=== PATIENT | male | born 1995 | race Two or more races ===

== ENCOUNTER 2024-07-11 18:27 | Emergency (ER) | payer BC, MEDICAID, SELFPAY ==
[2024-07-11 18:42] VITALS: BP 136/84; PULSE 104; RESP 16; TEMP 36.8; O2SAT 97; BMI 26.6
--- NOTE | 2024-07-11 19:01 | PD.EDURI ---
Upper Respiratory Inf. RME/HPI General Chief Complaint: Flu Like Symptoms Stated Complaint: FEVER, COUGH, SORE THROAT Time Seen by Provider: 07/11/24 18:57 Arrival date/time: 07/11/24 18:27 29M with history of anxiety and HLD presents to ED with several days of cough, sore throat, and fevers/chills. Family members at home have RSV. Patient is here mostly for RSV testing for his son, who he is here with, so he can get work off for 2 weeks that he will coordinate with his PCP. Limitations: no limitations Related Data Home Medications ?Medication ?Instructions ?Recorded ?Confirmed propranolol 10 mg tablet 10 mg PO QDAY 04/03/21 03/07/24 simvastatin 20 mg tablet 20 mg PO HS 03/07/24 03/07/24 Previous Rx's ?Medication ?Instructions ?Recorded aluminum-mag hydroxide-simethicone 10 ml PO QID PRN indigestion 03/07/24 200 mg-200 mg-20 mg/5 mL oral susp #3,000 mL (Advanced Antacid-Antigas) Allergies Allergy/AdvReac Type Severity Reaction Status Date / Time No Known Allergies Allergy Verified 03/17/23 17:33 Review of Systems Review of Systems Systems Reviewed: All systems reviewed, normal except as documented Constitutional Constitutional: Reports system reviewed and no additional complaints, except as documented, Reports as per HPI, Reports chills, Reports fever(s) and Denies headache(s) ENT Ears, Nose, Mouth, and Throat: Reports as per HPI, Denies disequilibrium, Denies headache(s) and Reports sore throat Cardiovascular Cardiovascular: Reports system reviewed and no additional complaints, except as documented, Denies chest pain and Denies dyspnea Respiratory Respiratory: Reports system reviewed and no additional complaints, except as documented, Reports as per HPI, Reports cough and Denies dyspnea Gastrointestinal Gastrointestinal: Reports system reviewed and no additional complaints, except as documented, Denies abdominal pain, Denies nausea and Denies vomiting Neurologic Neurologic: Reports system reviewed and no additional complaints, except as documented, Denies confusion, Denies disequilibrium and Denies headache(s) Psychiatric Psychiatric: Denies confusion Past Medical History Past Medical History CARDIAC: Positive Cardiac Disorders and Hypercholesterolemia; Negative Congestive Heart Failure RESPIRATORY: Negative Chronic Obstructive Pulmonary Disease (COPD) or Asthma GENITOURINARY: Negative Renal Disease ENDOCRINE: Negative Diabetes Mellitus Type 1 or Diabetes Mellitus Type 2 HEMATOLOGIC: Negative Sickle Cell Disease PSYCHO/SOCIAL: Positive Anxiety Social History SMOKING STATUS: Never smoker SUBSTANCE USE: does not use ED Exam General Limitations: Present no limitations General appearance: Present alert and in no apparent distress Head Head exam: Present atraumatic Eye Eye exam: Present normal appearance, PERRL and EOMI ENT ENT exam: Present normal exam, normal oropharynx and mucous membranes moist Neck Neck exam: Present normal inspection, full ROM and trachea midline Chest Chest inspection: Present normal inspection and symmetric chest wall rise Respiratory Respiratory exam: Present normal lung sounds bilaterally Cardiovascular Cardiovascular exam: Present regular rate, normal rhythm and normal heart sounds Abdominal Exam Abdominal exam: Present soft and normal bowel sounds Extremities Exam Extremities exam: Present normal inspection and full ROM Back Exam Back exam: Present normal inspection and full ROM Neurological Exam Neurological exam: Present alert, oriented X3 and CN II-XII intact Psychiatric Psychiatric exam: Present normal affect and normal mood Skin Skin exam: Present warm, dry, intact and normal color Course Quality Measures none Vital Signs Vital signs: Vital Signs Temperature 98.2 F 07/11/24 18:42 Pulse Rate 104 H 07/11/24 18:42 Respiratory Rate 16 07/11/24 18:42 Blood Pressure 136/84 H 07/11/24 18:42 Pulse Oximetry (%) 97 07/11/24 18:42 Oxygen Delivery Method Room Air 07/11/24 18:42 O2 at 97% on RA and WNLs Upper Respiratory Infection MDM Narrative MDM Narrative:: 29M with history of anxiety and HLD presents to ED with several days of cough, sore throat, and fevers/chills. Family members at home have RSV. Patient is here mostly for RSV testing for his son, who he is here with, so he can get work off for 2 weeks that he will coordinate with his PCP. Physical exam reveals clear ENT and lungs. Patient is afebrile, calm, and alert. Likely RSV, but viral URI nonetheless. Patient data External records reviewed:: [facility] previous records Clinical information provided by:: patient Social determinants that could affect healthcare access:: mental health Patient has the following chronic illnesses:: anxiety and HLD How is presenting disease/condition affected by chronic disease/condition?: exacerbated by Evaluation data The following diagnostics were reviewed and interpreted by me:: other (specify) (none) Lab and/or radiology exams considered but not ordered:: not ordered Interpretation Summary: n/a Medications / Prescriptions Medications or Prescriptions considered but not ordered:: not ordered Medication administrations:: n/a Consultations Consultation(s) initiated? (list below): No Diagnosis Upper Respiratory Differential Diagnosis: upper respiratory infection, croup, otitis media, sinusitis, viral infection, bronchitis, influenza and pharyngitis Most likely diagnosis given after review of the tests above:: RSV Admission Indicated Admission indicated?: not indicated Admission Request Was there a request for admission?: No Disposition Plan Disposition Plan: Discharge Discharge Attestation Discharge Attestation: The patient and all family members were given an opportunity to ask questions and understood the discharge instructions. Discharge instructions specifically effects, indications for sooner follow up or return to the emergency department, and the expected course of current diagnosis. Patient condition: Stable Discharge Plan Plan Patient Disposition: HOME (Self Care) Disposition Comment: Stable Prescriptions/Referrals Prescriptions/Med Rec: No Action propranolol 10 mg tablet 10 mg PO QDAY Patient Comments: TAKE ONE TABLET BY MOUTH TWICE DAILY simvastatin 20 mg tablet 20 mg PO HS Patient Comments: TAKE ONE TABLET BY MOUTH EVERY EVENING WITH FOOD FOR CHOLESTEROL alum-mag hydroxide-simeth [Advanced Antacid-Antigas] 200-200-20 mg/5 mL suspension 10 ml PO QID PRN (Reason: indigestion) Qty: 3000 0RF Rx Instructions: administer between meals and at bedtime Referrals: Andre Hammond FNP [Primary Care Provider] - In 1 week Problem List Clinical Impression: Respiratory syncytial virus (RSV) Patient/Caregiver Discharge Instructions Additional Instructions: Please follow-up with PCP within 24-48 hours and return immediately if symptoms worsen. Ibuprofen/Tylenol can be used simultaneously for greater fever/pain control. Benadryl is good for cough, congestion, and sleep. Print Language: Ugandan Stand Alone Forms: Patient Portal Info Letter DORIE/DEVOPS ARCHITECT Supervising Physician DORIE/WINNIE Supervising Physician: Dr. Levi
[2024-07-11 20:15] VITALS: RESP 18
== END 2024-07-11 20:15 | disposition home or self-care (01) ==
PROVIDERS: Emergency Provider Emergency Medicine; PCP Nurse Practitioner Family
DX: J22 Unspecified acute lower respiratory infection (principal); B97.4 Respiratory syncytial virus as the cause of diseases classified elsewhere
CPT/HCPCS: 99281

== ENCOUNTER 2024-12-31 21:15 | Emergency (ER) | payer BC, MEDICAID, SELFPAY ==
[2024-12-31 21:16] VITALS: BMI 25.9
[2024-12-31 22:33] VITALS: BP 119/81; PULSE 77; RESP 18; TEMP 36.8; O2SAT 98
--- NOTE | 2025-01-01 00:19 | PD.EDANX ---
ED Anxiety RME/HPI General Chief Complaint: Anxiety Stated Complaint: ANXIETY Time Seen by Provider: 12/31/24 23:06 Arrival date/time: 12/31/24 21:15 RME / HPI RME / HPI narrative: 29-year-old male presents to the ED with complaint of severe anxiety symptoms. He takes propranolol for his anxiety but his symptoms have become severe due to multiple recent stressors. He denies any current suicidal or homicidal ideation. He is interested in finding out about Zoloft. He has an appointment with his primary care physician as well as a psychiatrist on . Related Data Home Medications ?Medication ?Instructions ?Recorded ?Confirmed propranolol 10 mg tablet 10 mg PO QDAY 04/03/21 03/07/24 simvastatin 20 mg tablet 20 mg PO HS 03/07/24 03/07/24 Previous Rx's ?Medication ?Instructions ?Recorded aluminum-mag hydroxide-simethicone 10 ml PO QID PRN indigestion 03/07/24 200 mg-200 mg-20 mg/5 mL oral susp #3,000 mL (Advanced Antacid-Antigas) buspirone 7.5 mg tablet 7.5 mg PO TID PRN Anxiety symptoms 01/01/25 #7 tabs Allergies Allergy/AdvReac Type Severity Reaction Status Date / Time No Known Allergies Allergy Verified 12/31/24 21:20 Past Medical History Past Medical History CARDIAC: Positive Cardiac Disorders and Hypercholesterolemia; Negative Congestive Heart Failure RESPIRATORY: Negative Chronic Obstructive Pulmonary Disease (COPD) or Asthma GENITOURINARY: Negative Renal Disease ENDOCRINE: Negative Diabetes Mellitus Type 1 or Diabetes Mellitus Type 2 HEMATOLOGIC: Negative Sickle Cell Disease PSYCHO/SOCIAL: Positive Anxiety Social History SMOKING STATUS: Never smoker SUBSTANCE USE: does not use ED Exam Narrative Physical exam: A&O, afebrile and non-toxic appearing 29-year-old male who appears very anxious. He is in mild to moderate acute distress. Lung are clear, RRR, Abdomen is non-distended. Moves all extremities well. Patient is here with his . Course Course Course Narrative: Patient was given lorazepam 1 mg p.o. while here in the emergency department. He does not feel he needs evaluation with behavioral health tonight as he already has an appointment with a psychiatrist and his PCP on . Quality Measures none Orders Category Date Time Status LORazepam [Ativan] Med 12/31/24 23:42 Discontinued 1 mg PO X1 ONE Vital Signs Vital signs: Vital Signs Temperature 98.2 F 12/31/24 22:33 Pulse Rate 77 12/31/24 22:33 Respiratory Rate 18 12/31/24 22:33 Blood Pressure 119/81 12/31/24 22:33 Pulse Oximetry (%) 98 12/31/24 22:33 Oxygen Delivery Method Room Air 12/31/24 22:33 Anxiety MDM Narrative MDM Narrative: Symptoms, exam and diagnostic studies are consistent with: Moderate anxiety reaction. He was given lorazepam 1 mg p.o. prior to discharge. Patient was discharged home in stable and improved condition, with a prescription for BuSpar. Patient/family advised to follow-up with their PCP in 24-48 hours. He was advised to discuss Zoloft with his primary care physician for better control of his anxiety and depression symptoms. Encouraged to return to the ED for any new or worsening symptoms. Patient data External records reviewed:: None Clinical information provided by:: patient Social determinants that could affect healthcare access:: none Patient has the following chronic illnesses:: Anxiety and depression How is presenting disease/condition affected by chronic disease/condition?: exacerbated by Evaluation data The following diagnostics were reviewed and interpreted by me:: other (specify) (None) Lab and/or radiology exams considered but not ordered:: N/A Interpretation Summary: N/A Medications / Prescriptions Medications or Prescriptions considered but not ordered:: N/A Medication administrations:: Medication Administration History Discontinued Medications Lorazepam (Lorazepam 0.5 Mg Tablet) 1 mg PO X1 ONE Stop: 12/31/24 23:43 Last Admin: 01/01/25 00:12 Dose: 1 mg Documented By: YUDY As noted above Consultations Consultation(s) initiated? (list below): No Diagnosis Differential diagnosis anxiety: panic disorder, acute anxiety and other (Depression) Most likely diagnosis given after review of the tests above:: Acute anxiety reaction Admission Indicated Admission indicated?: not indicated Explain why admission is indicated or not indicated:: Patient is stable for discharge and denies suicidal or homicidal ideation. Admission Request Was there a request for admission?: No Admission Attestation Admission request attestation: N/A Disposition Plan Disposition Plan: Discharge Discharge Attestation Discharge Attestation: The patient and all family members were given an opportunity to ask questions and understood the discharge instructions. Discharge instructions specifically effects, indications for sooner follow up or return to the emergency department, and the expected course of current diagnosis. Patient condition: Stable Discharge Plan Plan Patient Disposition: HOME (Self Care) Discharge Disposition comment: Stable and improved Prescriptions/Referrals Prescriptions/Med Rec: New buspirone 7.5 mg tablet 7.5 mg PO TID PRN (Reason: Anxiety symptoms) Qty: 7 0RF No Action propranolol 10 mg tablet 10 mg PO QDAY Patient Comments: TAKE ONE TABLET BY MOUTH TWICE DAILY simvastatin 20 mg tablet 20 mg PO HS Patient Comments: TAKE ONE TABLET BY MOUTH EVERY EVENING WITH FOOD FOR CHOLESTEROL alum-mag hydroxide-simeth [Advanced Antacid-Antigas] 200-200-20 mg/5 mL suspension 10 ml PO QID PRN (Reason: indigestion) Qty: 3000 0RF Rx Instructions: administer between meals and at bedtime Referrals: No Primary/Family,Physician [Primary Care Provider] - In 1 week Problem List Clinical Impression: Acute anxiety Patient/Caregiver Discharge Instructions Education Materials: Treating Anxiety Disorders ..., ED Anxiety Reaction Additional Instructions: Take the medication as needed for your anxiety symptoms. Keep your appointments with your primary care physician and psychiatrist on . Follow-up with your primary care physician in 24 to 48 hours. Return to the ED for any new or worsening symptoms. Print Language: Montserratian Stand Alone Forms: Harini Award Info., Patient Portal Info Letter PA/WINNIE Supervising Physician DORIE/WINNIE Supervising Physician: Dr Levi
== END 2025-01-01 00:48 | disposition home or self-care (01) ==
PROVIDERS: Emergency Provider Emergency Medicine
DX: F41.9 Anxiety disorder, unspecified (principal)
CPT/HCPCS: 99282; A9270

== ENCOUNTER 2025-01-26 04:17 | Emergency (ER) | payer BC, MEDICAID, SELFPAY ==
[2025-01-26 04:18] VITALS: BMI 25.8
[2025-01-26 04:30] VITALS: BP 136/81; PULSE 90; RESP 18; TEMP 36.6; O2SAT 98
--- NOTE | 2025-01-26 04:57 | XR_ITS ---
Examination: CT thoracic spine, without contrast. 2-D sagittal reconstructions. 2-D coronal reconstructions. 3-D reconstructions. Date and time of exam:January 26, 2025, 0514 hrs. Indications: Patient slipped and fell 4 hours ago with injury to the mid back, mid back pain. CTDI: vol (mGy):49.35. DLP: (mGycm):2062. Technique: Multiple 1.25 mm axial sections of the thoracic spine without intravenous contrast. have been obtained. 2-D sagittal and coronal reconstructions have been obtained. 3-D reconstructions have been obtained. Low dose protocols were performed. One or more of the following dose reduction techniques were used; automated exposure control, adjustment of the mA and/or KV according to patient size, use of iterative reconstruction technique. Findings: Adequate alignment thoracic vertebral bodies. Minimal thoracic spondylosis. No acute thoracic fracture. Pedicles and laminae appear intact Impression: No acute thoracic fracture
--- NOTE | 2025-01-26 04:58 | XR_ITS ---
Examination: CT cervical spine without contrast 2-D sagittal reconstructions 2-D coronal reconstructions 3-D reconstructions. Exam date and time:January 26, 2025, 0512 hrs. Indications: Patient slipped and fell 6 hours ago with injury to the neck, neck pain. CTDI:vol (mGy) 15.16 DLP: (mGycm) 397. Technique: Multiple 2 mm axial sections of the cervical spine have been obtained. The coronal and sagittal reconstructions have been obtained. 3-D reconstructions have been obtained. Low dose protocols were performed. One or more of the following dose reduction techniques were used; automated exposure control, adjustment of the mA and/or KV according to patient size, use of iterative reconstruction technique. Findings: Axial sections demonstrate intact base of the skull. C1 exhibit satisfactory relationship to the odontoid. No acute cervical vertebral body fracture seen. Alignment posterior spinous processes satisfactory. Impression: No acute cervical fracture.
--- NOTE | 2025-01-26 04:58 | PD.EDRME ---
Rapid Medical Screening Exam [facility] Arrival date/time: 01/26/25 04:17 29M with history of anxiety presents to ED with upper back/neck pain after slip and fall while mopping. Patient now has some LUE numbness. Chief Complaint: Fall Vital signs: Vital Signs Temperature 98 F 01/26/25 04:30 Pulse Rate 90 01/26/25 04:30 Respiratory Rate 18 01/26/25 04:30 Blood Pressure 136/81 H 01/26/25 04:30 Pulse Oximetry (%) 98 01/26/25 04:30 Oxygen Delivery Method Room Air 01/26/25 04:30
[2025-01-26] MEDS: HYDROcodone/APAP 5/325 TABLET 1 TAB PO (05:05)
--- NOTE | 2025-01-26 05:41 | PRELIM_ITS ---
CT scan of the cervical spine without intravenous contrast (axial sections with sagittal and coronal reformats) January 26, 2025 at 0512 hours Clinical History: Fall. Comparison: None. Findings: There is no fracture or subluxation. The prevertebral soft tissues are unremarkable. Impression: No evidence of fracture or subluxation. Report Electronically Signed By: Ramon Lezama 01/26/2025 5:41:13 AM [EST]
--- NOTE | 2025-01-26 05:43 | PRELIM_ITS ---
CT scan of the thoracic spine without intravenous contrast (axial sections with sagittal and coronal reformats) January 26, 2025 at 0514 hours Clinical History: [place]. Comparison: None. Findings: There is no fracture or subluxation. The thoracic vertebrae are normally aligned. The intervertebral disc spaces are maintained. There is no pre or paravertebral soft tissue abnormality. Impression: No fracture or subluxation. Report Electronically Signed By: Ramon Lezama 01/26/2025 5:43:11 AM [EST]
[2025-01-26 06:56] VITALS: BP 144/92; PULSE 91; RESP 18; TEMP 36.9; O2SAT 98
--- NOTE | 2025-01-26 07:00 | EDNOTE_ITS ---
ED Fall Injury RME/HPI General Chief Complaint: Fall Stated Complaint: fall Time Seen by Provider: 01/26/25 05:31 Arrival date/time: 01/26/25 04:17 Limitations: no limitations RME / HPI RME / HPI Narrative: 01/26/25 04:17 29M with history of anxiety presents to ED with upper back/neck pain after slip and fall while mopping. Patient now has some LUE numbness. no +LOC. No injury to head. Related Data Home Medications ?Medication ?Instructions ?Recorded ?Confirmed propranolol 10 mg tablet 10 mg PO QDAY 04/03/2103/07 simvastatin 20 mg tablet 20 mg PO HS 03/07/24 4 Previous Rx's ?Medication ?Instructions ?Recorded aluminum-mag hydroxide-simethicone 10 ml PO QID PRN in digestion 03/07/24 200 mg-200 mg-20 mg/5 mL oral susp #3,000 mL (Advanced Antacid-Antigas) buspirone 7.5 mg tablet 7.5 mg PO TID PRN Anxiety sy mptoms 01/01/25 #7 tabs IBU 800 mg tablet (ibuprofen) 800 mg PO Q6H PRN pain # 30 tabs 01/26/25 baclofen 10 mg tablet 10 mg PO QDAY #20 tabs 01/26 hydrocodone 5 mg-acetaminophen 325 1 tab PO BID PRN pa in 7 days #14 01/26/25 mg tablet tabs Allergies Allergy/AdvReac Type Severity Reaction Status Date / Time No Known Allergies Allergy Verified 12/31/24 21:20 Review of Systems Review of Systems Systems Reviewed: All systems reviewed, normal except as documented Constitutional Constitutional: Denies fever(s) Musculoskeletal Musculoskeletal: Reports as per HPI ED Exam General Limitations: Present no limitations General appearance: Present alert and in no apparent distress Head Head exam: Present atraumatic Eye Eye exam: Present normal appearance, PERRL and EOMI ENT ENT exam: Present normal exam, normal oropharynx and mucous membranes moist Neck Neck exam: Present full ROM and tenderness (midline ttp c-spine ) Chest Chest inspection: Present normal inspection and symmetric chest wall rise Respiratory Respiratory exam: Present normal lung sounds bilaterally Cardiovascular Cardiovascular exam: Present regular rate, normal rhythm and normal heart sounds Abdominal Exam Abdominal exam: Present soft and normal bowel sounds Extremities Exam Extremities exam: Present normal inspection and full ROM Back Exam Back exam: Present full ROM and tenderness (paraspinous ttp thoracic ) Neurological Exam Neurological exam: Present alert, oriented X3 and CN II-XII intact Psychiatric Psychiatric exam: Present normal affect and normal mood Skin Skin exam: Present warm, dry, intact and normal color Course Quality Measures none Orders Category Date Time Status CT cervical spine wo con Stat Exams 01/26/25 04:[address] thoracic spine wo con Stat Exams 01/26/25 04:57 Completed HYDROcodone*/APAP 5/325 [[place] 5/325] Med 01/26/25 04:58 Discontinued 1 tab PO X1 ONE Vital Signs Vital signs: Vital Signs Temperature 98 F 01/26/25 04:30 Pulse Rate 90 01/26/25 04:30 Respiratory Rate 18 01/26/25 04:30 Blood Pressure 136/81 H 01/26/25 04:30 Pulse Oximetry (%) 98 01/26/25 04:30 Oxygen Delivery Method Room Air 01/26/25 04:30 Fall Patient data External records reviewed:: [facility] previous records Clinical information provided by:: patient and family Social determinants that could affect healthcare access:: other (specify) (weekend no pcp appt ) Patient has the following chronic illnesses:: none How is presenting disease/condition affected by chronic disease/condition?: no chronic disease Evaluation data The following diagnostics were reviewed and interpreted by me:: radiology exam(s) Lab and/or radiology exams considered but not ordered:: ct of head considered but no LOC Interpretation Summary: no fx of c or thoracic spine Medications / Prescriptions Medications or Prescriptions considered but not ordered:: all meds considered were sent Medication administrations:: Medication Administration History Discontinued Medications Hydrocodone Bitart/Acetaminophen (Hydrocodone/Apap 5/325 Tablet) 1 tab PO X1 ONE Stop: 01/26/25 04:59 Last Admin: 01/26/25 05:05 Dose: 1 tab Documented By: JE see above Consultations Consultation(s) initiated? (list below): No Diagnosis Fall Differential Diagnosis: dislocation of shoulder region, compression fracture, concussion with loss of consciousness, concussion without loss of consciousness and other (neck fx, compressiosn fx ) Most likely diagnosis given after review of the tests above:: 1. neck injury spasm 2. back injury Admission Indicated Admission indicated?: not indicated Admission Request Was there a request for admission?: No Disposition Plan Disposition Plan: Discharge Discharge Attestation Discharge Attestation: The patient and all family members were given an opportunity to ask questions and understood the discharge instructions. Discharge instructions specifically effects, indications for sooner follow up or return to the emergency department, and the expected course of current diagnosis. Patient condition: Stable Discharge Plan Plan Patient Disposition: HOME (Self Care) Discharge Disposition comment: f/.u with pcp in 2-3days Prescriptions/Referrals Prescriptions/Med Rec: New hydrocodone-acetaminophen 5-325 mg tablet 1 tab PO BID MDD 2 PRN (Reason: pain) 7 Days Qty: 14 0RF ibuprofen [IBU] 800 mg tablet 800 mg PO Q6H PRN (Reason: pain) Qty: 30 0RF baclofen 10 mg tablet 10 mg PO QDAY Qty: 20 0RF No Action propranolol 10 mg tablet 10 mg PO QDAY Patient Comments: TAKE ONE TABLET BY MOUTH TWICE DAILY simvastatin 20 mg tablet 20 mg PO HS Patient Comments: TAKE ONE TABLET BY MOUTH EVERY EVENING WITH FOOD FOR CHOLESTEROL alum-mag hydroxide-simeth [Advanced Antacid-Antigas] 200-200-20 mg/5 mL suspension 10 ml PO QID PRN (Reason: indigestion) Qty: 3000 0RF Rx Instructions: administer between meals and at bedtime buspirone 7.5 mg tablet 7.5 mg PO TID PRN (Reason: Anxiety symptoms) Qty: 7 0RF Referrals: No Primary/Family,Physician [Primary Care Provider] - In 1 week Problem List Clinical Impression: Injury of neck, Back contusion Patient/Caregiver Discharge Instructions Education Materials: ED Chest Wall Contusion, ED Contusion, Rib Print Language: Danish Stand Alone Forms: Harini Award Info., Patient Portal Info Letter PA/IMMIGRATION INVESTIGATOR Supervising Physician PA/IMMIGRATION INVESTIGATOR Supervising Physician: Dr. Peters
== END 2025-01-26 07:07 | disposition home or self-care (01) ==
PROVIDERS: Emergency Provider Emergency Medicine
DX: S20.229A Contusion of unspecified back wall of thorax, initial encounter (principal); S19.9XXA Unspecified injury of neck, initial encounter; W01.0XXA Fall on same level from slipping, tripping and stumbling without subsequent striking against object, initial encounter
CPT/HCPCS: 72125; 72128; 99283; A9270